=== PATIENT | female | born 1945 | race Caucasian/White ===

== ENCOUNTER 2019-08-16 11:37 | Emergency (ER) | payer MEDICARE ==
--- NOTE | 2019-08-16 12:31 | CT ---
CT BRAIN WITHOUT CONTRAST: 08/16/2019 FINDINGS: A noncontrast CT shows normal sized ventricles with no shift. No intracranial bleeding or extraaxial hematoma is seen. There is no sign of mass, edema or stroke. A scalp hematoma is seen in the right hi gh posterior occipital region. The underlying bone appears intact. There are no skull fractures or ai r-fluid levels in the sphenoid sinus. The mastoid air cells are under-aerated bilaterally. IMPRESSION: No acute intracranial findings. Preliminary report called to Dr. Villavicencio at 12:15 p.m. on 08/16/2019. CODE CR POS: HOME
--- NOTE | 2019-08-16 18:31 | RAD ---
RIGHT HIP 08/16/19 Multiple views show a right hip arthroplasty. There is no sign of acute fracture. There is no disloca tion. The bony pelvis appears intact. IMPRESSION: No acute finding. POS: HOME
== END 2019-08-16 12:33 | disposition home or self-care (01) ==
LOC: BURERS 11:37
DX: S00.03XA Contusion of scalp, initial encounter (principal); S70.01XA Contusion of right hip, initial encounter; I10 Essential (primary) hypertension; E78.5 Hyperlipidemia, unspecified; Z86.73 Personal history of transient ischemic attack (TIA), and cerebral infarction without residual deficits; F17.210 Nicotine dependence, cigarettes, uncomplicated; W01.198A Fall on same level from slipping, tripping and stumbling with subsequent striking against other object, initial encounter; Y92.511 Restaurant or cafe as the place of occurrence of the external cause
CPT/HCPCS: 70450